=== PATIENT | female | born 1965 | race Caucasian/White ===

== ENCOUNTER 2017-07-07 16:22 | Emergency (ER) | payer OTHER ==
[~2017-07-07] VITALS: Ht 157.5 cm; Wt 95.1 kg
[2017-07-07] MEDS ORDERED: PERCOCET 5/31 TABLET PO (18:17)
[2017-07-07 19:25] VITALS: BP 139/63
== END 2017-07-07 19:31 | disposition home or self-care (01) ==
LOC: EME 16:22
PROC: 2W3LX1Z Immobilization of Right Lower Extremity using Splint (ICD-10-PCS; principal; 2017-07-07)
DX: S82.391A Other fracture of lower end of right tibia, initial encounter for closed fracture (principal); S82.831A Other fracture of upper and lower end of right fibula, initial encounter for closed fracture; W18.49XA Other slipping, tripping and stumbling without falling, initial encounter; Y93.01 Activity, walking, marching and hiking; I10 Essential (primary) hypertension
CPT/HCPCS: 73590; 73600; 73630; 99281; 99284; J2270; J2405

== ENCOUNTER 2018-04-17 13:57 | Emergency (ER) | payer OTHER ==
[~2018-04-17] VITALS: Ht 154.9 cm; Wt 98.6 kg
[~2018-04-17 13:57] MED LIST: PERCOCET 5/31 TABLET PO
[2018-04-17] MEDS ORDERED: LORCET 5-325 M1 EACH PO (15:10)
[2018-04-17 16:29] VITALS: BP 125/71
== END 2018-04-17 16:37 | disposition home or self-care (01) ==
LOC: EME 13:57
PROC: 2W3LX1Z Immobilization of Right Lower Extremity using Splint (ICD-10-PCS; principal; 2018-04-17)
DX: S82.451A Displaced comminuted fracture of shaft of right fibula, initial encounter for closed fracture (principal); W10.9XXA Fall (on) (from) unspecified stairs and steps, initial encounter; I10 Essential (primary) hypertension; Z87.81 Personal history of (healed) traumatic fracture; Z98.890 Other specified postprocedural states; Z86.69 Personal history of other diseases of the nervous system and sense organs
CPT/HCPCS: 73590; 73610; 99281; 99284; J3010

== ENCOUNTER → 2018-05-03 | Outpatient (CLI) | payer MEDICARE, OTHER ==
[~2018-05-03] MED LIST changes: +APRESOLINE10 MG PO; +DILANTIN100 MG PO; +DILANTIN30 MG PO; +KEPPRA250 MG PO; +KEPPRA750 MG PO; +LORCET 5-325 M1 EACH PO; +MOTRIN400 MG PO; +TYLENOL325 M2 PO
== END | disposition home or self-care (01) ==
LOC: CDC 13:05
DX: M79.661 Pain in right lower leg (principal); S82.431D Displaced oblique fracture of shaft of right fibula, subsequent encounter for closed fracture with routine healing; S82.301D Unspecified fracture of lower end of right tibia, subsequent encounter for closed fracture with routine healing
CPT/HCPCS: 93000

== ENCOUNTER 2018-05-06 11:27 | Day surgery (SDC) | payer OTHER ==
[~2018-05-06] VITALS: Ht 157.5 cm; Wt 90.7 kg
[2018-05-06 13:09] VITALS: BP 117/71
[2018-05-06 19:50] VITALS: BP 144/73
[2018-05-06 20:39] VITALS: BP 129/64
== END 2018-05-06 20:42 | disposition home or self-care (01) ==
LOC: SDC 11:27
PROVIDERS: Anesthesiology
DX: S82.391K Other fracture of lower end of right tibia, subsequent encounter for closed fracture with nonunion (principal); G40.909 Epilepsy, unspecified, not intractable, without status epilepticus
CPT/HCPCS: 73590; 76000; 80185; 81025; 87070; 87075; 87205; 88305; 88311; 88331; C1713; J0131; J0690; J1100; J1170; J1885; J2250; J2405; J2795; J3010; J3475; Q0175; S0020